=== PATIENT | female | born 1960 | race African-American/Black ===

== ENCOUNTER 2016-03-27 16:44 | Emergency (ER) | payer OTHER ==
[~2016-03-27] VITALS: Ht 154.9 cm; Wt 86.2 kg
[~2016-03-27 16:44] MED LIST: ALDACTONE25 MG PO; ALLOPURINOL 10100 M1 PO; ALLOPURINOL 10100 M2 PO; AMLODIPINE BESY10 MG PO; ASPIRIN EC81 M1 PO; ASPIRIN81 M2 PO; ATENOLOL 50 MG50 M1 PO; ATENOLOL 50MG T50 M1 PO; AUGMENTIN 500-1 EACH PO; AUGMENTIN 875875 MG PO; Augmentin PO; BACTRIM DS TAB1 EACH PO; BENICAR40 MG PO; BENTYL20 MG PO; BUDESONIDE INH; CARVEDILOL12.5 MG PO; CIPROFLOXACIN500 M3 PO; COLACE 100 MG100 MG PO; COLACE100 MG PO; COLCHICINE 0.60.6 M1 PO; COZAAR 50 MG TA50 MG PO; CRESTOR10 MG PO; DAZIDOX10 MG PO; DEEP SEA NASAL44 M1 NS; DUONEB 2.5-0.5 M3 ML INH; ENDOCET 10-3251 EACH PO; ENDOCET 7.5-321 EACH PO; FERREX 150150 MG PO; FLEXERIL PO; FUROSEMIDE 40 M40 M1 PO; GLIPIZIDE XL2.5 MG PO; GLUCOPHAGE500 MG PO; GLUMETZA500 PO; GLYBURIDE 5 MG T5 M1 PO; GLYCOLAX POWDER17 G1 PO; HYDROXYCHLOROQ200 M1 PO; IMDUR 30 MG TAB30 M1 PO; K-DUR 20 MEQ T20 MEQ PO; K-DUR10 MEQ PO; LANSOPRAZOLE30 MG PO; LASIX 40 MG TAB40 M1 PO; LASIX 40 MG TAB40 MG PO; LEVAQUIN 500 M500 M1 PO; LO-DOSE ASPIRIN81 M1 PO; MAG-OX 400 TAB400 M1 PO; MAGNESIUM400 MG PO; MELOXICAM7.5 MG PO; METOCLOPRAMIDE10 MG PO; MIRALAX17 GM PO; MOBIC7.5 MG PO; MUCINEX600 MG PO; NEXIUM40 MG PO; NICOTINE TRANSD14 M1 TRANSDERM; NORCO 5-325 TA1 EACH PO; NORVASC10 MG PO; NOVOLOG100 UNIT/1 SQ; PACERONE 200 M200 M1 PO; PERCOCET 10-321 EACH PO; PHENERGAN-CODE120 ML PO; POTASSIUM20 PO; PRADAXA150 MG PO; PREDNISONE 10 M10 MG PO; PREDNISONE 20 M20 M1 PO; PREDNISONE 20 M20 MG PO; PREDNISONE 5 MG5 M1 PO; RANITIDINE 150150 M1 PO; REGLAN 10 MG TA10 MG PO; SENNA PO; SIMVASTATIN20 MG PO; SPIRONOLACTONE25 M3 PO; THERA-M CAPLET1 EAC1 PO; THEREMS M; TRAMADOL 50 MG50 MG PO; ULORIC40 MG PO; ULORIC80 MG PO; VITAMIN D 5050000 I1 PO; VITAMIN D250000 UNIT PO; VITAMIN D32000 UNI1 PO; VOLTAREN100 GM; ZANTAC 150MG T150 M1 PO; ZOCOR 20 MG TAB20 M1 PO; ZOFRAN ODT4 MG PO; ZPAK PO
[2016-03-27 17:50] LABS: MCH 28.3 pg (26.0-34.0); MCHC 32.4 % (28.0-37.0); MCV 87.2 fL (80.0-100.0); PLATELET COUNT 250 thou/uL (150-400); RDW 14.4 % (10.5-14.5); WBC 12.2 thou/uL (4.0-11.0)
[2016-03-27 17:54] LABS: MANUAL DIFF YES
[2016-03-27 17:57] LABS: URINE BILIRUBIN NEGATIVE (Negative); URINE BLOOD NEGATIVE (Negative); URINE COLOR YELLOW; URINE GLUCOSE-RANDOM* NEGATIVE (Negative); URINE KETONES NEGATIVE (Negative); URINE NITRITE NEGATIVE (Negative); URINE PROTEIN (DIPSTICK) NEGATIVE (Negative); URINE UROBILINOGEN 0.2 E.U./dl (0.2-1.0)
[2016-03-27 18:09] LABS: CALCIUM 8.5 mg/dL (8.5-10.1); CREATININE 1.9 mg/dL (0.6-1.3)
[2016-03-27 18:13] LABS: ALBUMIN 3.4 g/dL (3.4-5.0); TOTAL BILIRUBIN 0.3 mg/dL (<0.1-1.0); TOTAL PROTEIN 7.5 g/dL (6.4-8.2)
[2016-03-27 18:20] LABS: ABSOLUTE NEUTROPHILS 9.3 thou/uL (1.4-8.2); TOTAL CELL COUNT 100
[2016-03-27 18:21] LABS: HYPOCHROMASIA 1+
[2016-03-27] MEDS ORDERED: PHENERGAN 25 MG25 M1 PO (19:11)
== END 2016-03-27 19:31 | disposition home or self-care (01) ==
LOC: ER 16:44
PROVIDERS: Physician Assistant
DX: N17.9 Acute kidney failure, unspecified (principal); D21.9 Benign neoplasm of connective and other soft tissue, unspecified; E86.0 Dehydration; I11.0 Hypertensive heart disease with heart failure; I50.9 Heart failure, unspecified; K21.9 Gastro-esophageal reflux disease without esophagitis; E11.9 Type 2 diabetes mellitus without complications; F17.210 Nicotine dependence, cigarettes, uncomplicated; Z90.49 Acquired absence of other specified parts of digestive tract; Z98.890 Other specified postprocedural states; Z88.8 Allergy status to other drugs, medicaments and biological substances

== ENCOUNTER → 2017-03-26 | Outpatient (CLI) | payer OTHER ==
[~2017-03-26] MED LIST changes: +ACETAMINOPHEN325 M1 PO; +AMOXICILLIN 50500 MG PO; +ENOXAPARIN40 MG/0.1 SUBQ; +LIDOCAINE VISC100 ML PO; +MAGIC MOUTHWASH SWISH&SPIT; +NICOTINE1 EAC2 TRANSDERM; +NOVOLOG100 UNIT/1 SUBQ; +PHENERGAN 25 MG25 M1 PO; +PROBIOTIC1 EAC1 PO
== END ==
LOC: RAD 01-28 11:31
DX: J41.1 Mucopurulent chronic bronchitis (principal); J98.11 Atelectasis; R91.8 Other nonspecific abnormal finding of lung field; M25.532 Pain in left wrist

== ENCOUNTER → 2017-04-27 | Outpatient (CLI) | payer OTHER | LOC: CAT 03-31 11:40 | DX: J41.1 Mucopurulent chronic bronchitis (principal); R91.8 Other nonspecific abnormal finding of lung field ==

== ENCOUNTER 2017-05-16 10:01 | Inpatient (IN) | payer OTHER ==
[~2017-05-16] VITALS: Ht 167.6 cm; Wt 108.0 kg
--- NOTE | ~2017-05-16 | HC ---
[facility] [place] [address] CONSULTATION Name: HUMBERTO SMITH Room #: 207-P ADM IN M.R.#: [id number] Admission: 05/16/17 Attend Phys: Farzana Paez Discharge: Date of : 60 Report #: [id number] THIS REPORT FOR: //name// CC: Michel Paez DATE OF SERVICE: 05/16/2017 INFECTIOUS DISEASE CONSULTATION ATTENDING PHYSICIAN: Farzana Paez M.D. REASON FOR EVALUATION: Consolidating pneumonitis involving the left lung, complicated by pleuritis. HISTORY OF PRESENT ILLNESS: Chart reviewed, the patient examined. This is a 57-year-old woman with known history of lung disease. She does have a long-standing history of smoking cigarettes. Does have diabetes mellitus type 2 and history of pacemaker defibrillator, who became fairly abruptly ill within the last 48-72 hours. She noted severe pain, especially with coughing and deep breathing and was in some degree of hemoptysis as well. Febrile to 102.3 in the Emergency Room. Evaluation was notable for positive imaging with consolidative process involving the left lung via the CT. Influenza antigen was negative. Lactic acid 1.4. ABGs: A pH of 7.342, pCO2 of 36.4 and pO2 of 39.2 and that was on 6 liters. She had some emesis and upper abdominal related pain. CT abdomen and pelvis showed the dense consolidation of the left lower lobe, although no acute process in the abdominal or pelvic cavities. Empirically treated with Tamiflu, levofloxacin and ceftriaxone. She is not encephalopathic. ALLERGIES: ENALAPRIL. CURRENT MEDICATIONS: Include furosemide, amlodipine, atenolol, enoxaparin, levofloxacin, methylprednisolone, aspirin, p.r.n. analgesics, antiemetics and Tamiflu. PAST MEDICAL HISTORY: Diabetes mellitus type 2, history of gout, history of hypertension, pacemaker defibrillator placement post cholecystectomy and tubal ligation. SOCIAL HISTORY: She does smoke cigarettes, although has not smoked in 2 weeks. Occasional ethanol. No illicit drug use. FAMILY HISTORY: Noncontributory. REVIEW OF SYSTEMS: As above. Denies any diarrhea. Has had some nausea with emesis. [facility] [address] [place] [address] CONSULTATION Name: HUMBERTO SMITH Room #: 207-P [facility] IN M.R.#: [id number] Admission: 05/16/17 Attend Phys: Farzana Paez Discharge: Date of : 60 Report #: [id number] PHYSICAL EXAMINATION: GENERAL: She is in cozxczwb-[id number] distress secondary to the pain, appears somewhat acutely chronically ill. VITAL SIGNS: T-max of 102.3, more recently 99.3; pulse 111; respirations 22 and blood pressure 146/67. SKIN: Warm, dry. HEENT: Unremarkable. NECK: Supple. LUNGS: Scattered coarse breath sounds. I appreciate initially a rub on the left posterolateral basilar aspect. HEART: Tachycardic, regular. ABDOMEN: Soft, nontender and nondistended. There are no peritoneal signs. GENITOURINARY: Deferred. RECTAL: Deferred. LABORATORY DATA: Chest x-rays showed cardiomegaly, left basilar and right patchy lower lobe. CT confirmed dense consolidation of the left base. CBC: White count of 22.8, H and H 10.3 and 32.6 and platelets of 248,000. Urinalysis unremarkable. Lactic acid 1.4. ASSESSMENT AND PLAN: Severe pneumonitis and certainly may be developing some sort of complicated issue such as an empyema. We would be worried about gram-positive etiology in the setting of group A Strep pneumococcus or Staph aureus. We will dose with vancomycin as well. Given the severity, this is certainly consistent with pleuritic-type chest pain. At this point, she is quite tenuous given the hypoxemia. She does have recently controlled blood sugars. Liver functions were otherwise unremarkable. We will go ahead and check lipase and amylase. However, it certainly raises a possibility of an issue there. We will see how she does clinically and await culture results. Discussed with Dr. Bee. <ELECTRONICALLY SIGNED> By: Baljeet Kee MD 05/17/17 0758 1721 2236 Baljeet Kee MD /nt
--- NOTE | ~2017-05-16 | HC ---
[facility] [place] [address] CONSULTATION Name: HUMBERTO SMITH Room #: 207-P [facility] IN M.R.#: [id number] Admission: 05/16/17 Attend Phys: Farzana Paez Discharge: 05/21/17 Date of : 60 Report #: [id number] THIS REPORT FOR: //name// CC: Michel Paez MD DATE OF SERVICE: 05/16/2017 REFERRING PROVIDER: Farzana Paez M.D. REASON FOR CONSULTATION: Pneumonia. CHIEF COMPLAINT: Shortness of breath. HISTORY OF PRESENT ILLNESS: Our group was asked to see the patient in consultation while hospitalized at [facility], well known to me from office visits and prior hospital stays, a very pleasant 57-year-old woman who presented with increasing shortness of breath, cough and sputum production, unable to clear secretions well over about the last 3 days and ongoing fever and myalgias, some nausea and vomiting. The patient is typically on low flow oxygen 2-3 liters nasal cannula. The patient also is on chronic steroids for underlying history of bronchiolitis obliterans organizing pneumonia in the distant past. Also, the pulmonary history significant of pulmonary embolism. She just 1 month ago was complaining of similar symptoms, found to have a lesion anteriorly on her chest x-ray, was placed on antibiotics and followup imaging including a CT scan of the chest just done 2 weeks ago showed minimal ground glass changes, otherwise clear. However, today on radiographic imaging in the Emergency Department, a large left lower lobe pneumonia was noted. No recent travel, no ill contacts. ALLERGIES: INCLUDE WILLIAM INHIBITORS. PAST MEDICAL HISTORY: 1. Bronchiolitis obliterans organizing pneumonia. 2. Chronic obstructive pulmonary disease. 3. Chronic hypoxemic respiratory failure. 4. Gout. 5. Hyperlipidemia. 6. Hypertension. 7. Nonischemic cardiomyopathy. 8. Implanted defibrillator cardioverter pacer. 9. Obesity. 10. Obstructive sleep apnea. 11. History of ventricular tachycardia. [facility] [address] [place] [address] CONSULTATION Name: HUMBERTO SMITH Room #: 207-P [facility] IN M.R.#: [id number] Admission: 05/16/17 Attend Phys: Farzana Paez Discharge: 05/21/17 Date of : 60 Report #: [id number] PAST SURGICAL HISTORY: Includes appendectomy, cholecystectomy, foot surgery and tubal ligation. SOCIAL HISTORY: The patient is an active smoker, smoking up until the time of admission. No significant alcohol consumption. FAMILY HISTORY: Negative for any significant pulmonary disease. OUTPATIENT MEDICATIONS: Include albuterol p.r.n., amlodipine 10 mg daily, aspirin 81 mg daily, atenolol 50 mg daily, Colace, Uloric 80 mg daily, fish oil, Lasix 40 mg twice daily, DuoNebs, potassium chloride, prednisone 5 mg daily, ranitidine, rosuvastatin and Breo 125 inhaler. PHYSICAL EXAMINATION: VITAL SIGNS: Temperature max 39.1, pulse 115 and regular, respiratory rate 20, blood pressure 146/67. GENERAL: This is an obese, middle-aged woman, does not appear in any distress, although obviously ill appearing. ENT: Clear oropharynx. No thrush. NECK: Supple without adenopathy. LUNGS: Markedly diminished left base with bronchial breath sounds and coarse expiratory rhonchi. CARDIOVASCULAR: Heart was tachycardic, but regular. No murmurs noted. ABDOMEN: Obese, soft, nontender, no masses. EXTREMITIES: Without edema. They are warm with 2+ pulses. INTEGUMENT: No rash. LABORATORY DATA: White blood cell count was 23,000, hemoglobin 10, hematocrit 33, platelet count 248. Sodium 141, potassium 3.3, chloride 105, bicarbonate 21, BUN 46, creatinine 2.3, glucose 124. ProBNP was 3934. Arterial blood gas done on 6 liters suggests a venous blood gas with a pH of 7.34, pCO2 of 36, pO2 of 39, bicarbonate 19. Urinalysis was clear. Rapid flu screen was negative. IMPRESSION: 1. Left lower lobe pneumonia. 2. Possible influenza. 3. Chronic steroid use. 4. Chronic obstructive pulmonary disease with acute exacerbation. 5. Acute on chronic hypoxemic respiratory failure due to the above. 6. History of bronchiolitis obliterans organizing pneumonia. 7. History of nonischemic cardiomyopathy. 8. Diabetes mellitus type 2. SUGGESTIONS: 1. Systemic steroids with taper. 2. Ask Infectious Disease Service to assist with antimicrobial management. The [address] [address] CONSULTATION Name: HUMBERTO SMITH Room #: 207-P [facility] IN M.R.#: [id number] Admission: 05/16/17 Attend Phys: Farzana Paez Discharge: 05/21/17 Date of : 60 Report #: [id number] patient has already received Rocephin and levofloxacin. 3. Continue systemic steroids with taper. 4. Bronchodilators. We will add EzPAP. 5. Add Tamiflu. 6. Nasal swab for respiratory viral panel. 7. Continuous oximetry. 8. Additional recommendations will follow. Thank you for requesting our suggestions. <ELECTRONICALLY SIGNED> By: Julius Victoria MD 05/21/17 1452 1447 1511 Julius Victoria MD /nt
--- NOTE | ~2017-05-16 | EKG ---
[place] [address] [facility] [place] [address] ELECTROCARDIOGRAM REPORT Name: HUMBERTO SMITH Room #: 207-P ADM IN M.R.#: [id number] Admission: 05/16/17 Attend Phys: Farzana Paez Discharge: Date of : 60 Report #: [id number] THIS REPORT FOR: //name// [facility] ED Test Date: 2017-05-16 Test Time: 10:30:28 Pat Name: HUMBERTO SMITH Department: Room: 207 Gender: F Silk Screener: Nelson OLIVERA : 1960 Requested By: Tito Osborne Order Number: [id number] MD: Roshan Chicas Measurements Intervals [place] Rate: 116 P: 60 WI: 128 QRS: 3 QRSD: 78 T: 67 QT: 330 QTc: 459 Interpretive Statements Sinus tachycardia Left atrial abnormality Compared to ECG 01/10/2014 12:13:34 Heart rate has increased Electronically Signed On 05-17-2017 7:41:47 MANAGER DOCUMENT by Roshan Chicas [email or web address] <ELECTRONICALLY SIGNED> By: Roshan Chicas MD, [facility] 05/17/17 0741 1030 1030 Roshan Chicas MD, [facility] /EPI
[~2017-05-16 10:01] MED LIST changes: -ACETAMINOPHEN325 M1 PO; -ENOXAPARIN40 MG/0.1 SUBQ; -LIDOCAINE VISC100 ML PO; -MAGIC MOUTHWASH SWISH&SPIT; -NICOTINE1 EAC2 TRANSDERM; -NOVOLOG100 UNIT/1 SUBQ; -PROBIOTIC1 EAC1 PO
[2017-05-16 10:02] VITALS: BP 142/71
[2017-05-16] MEDS ORDERED: POTASSIUM20 PO (10:17)
[2017-05-16 10:59] LABS: HEMATOCRIT 32.6 % (37.0-47.0); HEMOGLOBIN 10.3 gm/dL (12.0-15.0); MCH 27.8 pg (26.0-34.0); MCHC 31.7 g/dL (28.0-37.0); MCV 87.8 fL (80.0-100.0); PLATELET COUNT 248 thou/uL (150-400); RBC 3.72 mil/uL (4.20-5.00); RDW 14.4 % (10.5-14.5); WBC 22.8 thou/uL (4.0-11.0)
[2017-05-16 11:04] LABS: ANION GAP 15 mmol/L (7-16); BUN 46 mg/dL (7-18); CALCIUM 8.1 mg/dL (8.5-10.1); CHLORIDE 105 mmol/L (98-107); CO2 21 mmol/L (21-32); CREATININE 2.3 mg/dL (0.6-1.0); GLUCOSE 124 mg/dL (74-106); POTASSIUM 3.3 mmol/L (3.5-5.1); SODIUM 141 mmol/L (136-145)
[2017-05-16 11:08] LABS: INR 1.1; PROTIME 11.2 Seconds (9.3-11.4)
[2017-05-16 11:15] LABS: SGOT 19 U/L (15-37); SGPT 16 U/L (30-65); TOTAL BILIRUBIN 0.4 mg/dL (<0.1-1.0); TOTAL PROTEIN 6.9 g/dL (6.4-8.2); TROPONIN-I < 0.04 ng/mL (<0.06)
[2017-05-16 11:20] LABS: URINE BILIRUBIN NEGATIVE (Negative); URINE BLOOD NEGATIVE (Negative); URINE CLARITY CLEAR; URINE COLOR YELLOW; URINE GLUCOSE-RANDOM* NEGATIVE (Negative); URINE KETONES NEGATIVE (Negative); URINE LEUKOCYTES NEGATIVE (Negative); URINE NITRITE NEGATIVE (Negative); URINE PROTEIN (DIPSTICK) NEGATIVE (Negative); URINE UROBILINOGEN 0.2 E.U./dl (0.2-1.0)
[2017-05-16 11:31] LABS: ABSOLUTE NEUTROPHILS 19.8 thou/uL (1.4-8.2); ANISOCYTOSIS 1+
[2017-05-16 11:32] LABS: POLYCHROMASIA OCCASIONAL
[2017-05-16 11:37] LABS: BE(vivo) -5.8 mmol/L (-2 to +3); HCO3 19.3 mmol/L (22.0-26.0); PCO2 36.4 mmHg (35.0-45.0); pH 7.342 (7.360-7.450); sO2 71.3 % (92.0-98.0)
[2017-05-16 11:38] LABS: PO2 39.2 mmHg (80.0-100.0)
[2017-05-16 12:59] VITALS: BP 146/67
[2017-05-16 17:58] LABS: AMYLASE 89 U/L (25-115); LIPASE 115 U/L (73-393)
[2017-05-16 19:52] VITALS: BP 134/75
[2017-05-16 23:31] VITALS: BP 117/65
[2017-05-17 03:37] VITALS: BP 123/67
[2017-05-17 08:00] LABS: BE(vivo) -5.6 mmol/L (-2 to +3); HCO3 19.8 mmol/L (22.0-26.0); PCO2 38.4 mmHg (35.0-45.0); PO2 63.2 mmHg (80.0-100.0); pH 7.331 (7.360-7.450); sO2 90.9 % (92.0-98.0)
[2017-05-17 11:31] VITALS: BP 110/70
[2017-05-17 18:09] VITALS: BP 122/45
[2017-05-17 19:42] VITALS: BP 121/88
[2017-05-18 04:05] VITALS: BP 104/54
[2017-05-18 04:51] LABS: ALBUMIN 2.4 g/dL (3.4-5.0); CALCIUM 6.7 mg/dL (8.5-10.1); CREATININE 2.3 mg/dL (0.6-1.0); HEMOGLOBIN 8.5 gm/dL (12.0-15.0); MCHC 31.4 g/dL (28.0-37.0); MCV 89.3 fL (80.0-100.0); POTASSIUM 4.5 mmol/L (3.5-5.1); RBC 3.02 mil/uL (4.20-5.00); RDW 14.7 % (10.5-14.5); WBC 29.8 thou/uL (4.0-11.0)
[2017-05-18 09:04] VITALS: BP 108/66
[2017-05-18 12:41] VITALS: BP 122/71
[2017-05-18 16:08] VITALS: BP 106/69
[2017-05-18 19:43] VITALS: BP 115/58
[2017-05-19 03:24] VITALS: BP 104/67
[2017-05-19 04:25] LABS: HEMATOCRIT 27.3 % (37.0-47.0); HEMOGLOBIN 8.6 gm/dL (12.0-15.0); MCH 28.3 pg (26.0-34.0); MCHC 31.7 g/dL (28.0-37.0); MCV 89.3 fL (80.0-100.0); PLATELET COUNT 246 thou/uL (150-400); RBC 3.05 mil/uL (4.20-5.00); RDW 14.5 % (10.5-14.5); WBC 23.9 thou/uL (4.0-11.0)
[2017-05-19 04:39] LABS: ALBUMIN 2.7 g/dL (3.4-5.0); CREATININE 2.5 mg/dL (0.6-1.0); PHOSPHORUS 4.3 mg/dL (2.5-4.9)
[2017-05-19 07:33] LABS: ABSOLUTE NEUTROPHILS 22.7 thou/uL (1.4-8.2); ANISOCYTOSIS 1+; POLYCHROMASIA OCCASIONAL
[2017-05-19 08:25] VITALS: BP 125/72
[2017-05-19 11:50] VITALS: BP 113/61
[2017-05-19 15:38] VITALS: BP 135/80
[2017-05-19 20:00] VITALS: BP 123/69
[2017-05-20 00:06] LABS: ADENOVIRUS Negative (Negative); INFLUENZA A Negative (Negative); INFLUENZA B Negative (Negative); METAPNEUMOVIRUS Negative (Negative); PARAINFLUENZA 1 Negative (Negative); PARAINFLUENZA 2 Negative (Negative); PARAINFLUENZA 3 Negative (Negative); RHINOVIRUS Negative (Negative); RSV A Negative (Negative); RSV B Negative (Negative)
[2017-05-20 03:18] LABS: HEMATOCRIT 26.5 % (37.0-47.0); HEMOGLOBIN 8.5 gm/dL (12.0-15.0); MCH 28.2 pg (26.0-34.0); MCHC 31.8 g/dL (28.0-37.0); MCV 88.6 fL (80.0-100.0); RDW 14.5 % (10.5-14.5); WBC 20.7 thou/uL (4.0-11.0)
[2017-05-20 03:29] LABS: ALBUMIN 2.6 g/dL (3.4-5.0); CALCIUM 6.9 mg/dL (8.5-10.1); CREATININE 2.4 mg/dL (0.6-1.0); PHOSPHORUS 4.3 mg/dL (2.5-4.9)
[2017-05-20 04:00] VITALS: BP 119/78
[2017-05-20 14:59] VITALS: BP 146/86
[2017-05-20 17:14] VITALS: BP 134/78
[2017-05-20 19:44] VITALS: BP 127/64
[2017-05-21 04:49] VITALS: BP 117/62
[2017-05-21 07:19] VITALS: BP 142/84
[2017-05-21] MEDS ORDERED: LEVAQUIN 500 M500 M1 PO (08:46)
[2017-05-21] MEDS ORDERED: PREDNISONE 10 M10 MG PO (08:48)
[2017-05-21 08:59] LABS: HEMATOCRIT 29.8 % (37.0-47.0); HEMOGLOBIN 9.4 gm/dL (12.0-15.0); MCH 28.1 pg (26.0-34.0); MCHC 31.4 g/dL (28.0-37.0); MCV 89.5 fL (80.0-100.0); RBC 3.33 mil/uL (4.20-5.00); RDW 14.7 % (10.5-14.5); WBC 23.6 thou/uL (4.0-11.0)
[2017-05-21 10:00] VITALS: BP 146/86
[2017-05-21 11:55] VITALS: BP 146/86
== END 2017-05-21 12:13 | disposition home or self-care (01) | DRG 871 ==
LOC: ER 10:01 → 2N 11:45 → EROBS 11:45 → 2N 12:40
PROVIDERS: Hospitalist; Internal Medicine Pulmonary Disease; Physician Assistant; Specialist
DX: A41.9 Sepsis, unspecified organism (principal); J96.21 Acute and chronic respiratory failure with hypoxia; J18.1 Lobar pneumonia, unspecified organism; J44.1 Chronic obstructive pulmonary disease with (acute) exacerbation; I13.0 Hypertensive heart and chronic kidney disease with heart failure and stage 1 through stage 4 chronic kidney disease, or unspecified chronic kidney disease; I42.8 Other cardiomyopathies; E78.00 Pure hypercholesterolemia, unspecified; M10.9 Gout, unspecified; K21.9 Gastro-esophageal reflux disease without esophagitis; E66.9 Obesity, unspecified; E78.5 Hyperlipidemia, unspecified; I50.9 Heart failure, unspecified; I48.91 Unspecified atrial fibrillation; G89.29 Other chronic pain; M54.9 Dorsalgia, unspecified; F17.210 Nicotine dependence, cigarettes, uncomplicated; N18.9 Chronic kidney disease, unspecified; R65.20 Severe sepsis without septic shock; G47.33 Obstructive sleep apnea (adult) (pediatric); E11.22 Type 2 diabetes mellitus with diabetic chronic kidney disease; Z90.49 Acquired absence of other specified parts of digestive tract; Z95.810 Presence of automatic (implantable) cardiac defibrillator; Z68.38 Body mass index [BMI] 38.0-38.9, adult; Z79.82 Long term (current) use of aspirin; Z79.899 Other long term (current) drug therapy; Z88.8 Allergy status to other drugs, medicaments and biological substances
CPT/HCPCS: 10081

== ENCOUNTER 2017-05-27 17:12 | Emergency (ER) | payer OTHER ==
[~2017-05-27] VITALS: Ht 167.6 cm; Wt 108.9 kg
--- NOTE | ~2017-05-27 | EKG ---
[place] [address] [facility] [place] [address] ELECTROCARDIOGRAM REPORT Name: HUMBERTO SMITH Room #: DEP [facility]#: [id number] Admission: 05/27/17 Attend Phys: Discharge: 05/27/17 Date of : 60 Report #: [id number] THIS REPORT FOR: //name// [facility] ED Test Date: 2017-05-27 Test Time: 18:43:18 Pat Name: HUMBERTO SMITH Department: Room: Gender: F Mechanical Technologist: BUDDY : 1960 Requested By: Felicia Luque Order Number: [id number] MD: Roshan Chicas Measurements Intervals [place] Rate: 79 P: 80 ID: 132 QRS: 1 QRSD: 89 T: 43 QT: 425 QTc: 488 Interpretive Statements Sinus rhythm Probable left atrial enlargement RSR' in V1 or V2, probably normal variant Nonspecific ST segment abnormality Borderline prolonged QT interval Compared to ECG 05/16/2017 10:30:28 No significant change was found Electronically Signed On 05-28-2017 8:01:53 PICKLE CUTTER by Roshan Chicas [email or web address] <ELECTRONICALLY SIGNED> By: Roshan Chicas MD, [facility] 05/28/17 0801 1843 1843 Roshan Chicas MD, [facility] /EPI
[2017-05-27 20:17] LABS: HEMATOCRIT 31.1 % (37.0-47.0); MCH 28.5 pg (26.0-34.0); MCHC 32.2 g/dL (28.0-37.0); MCV 88.4 fL (80.0-100.0); PLATELET COUNT 296 thou/uL (150-400); RBC 3.51 mil/uL (4.20-5.00); WBC 22.4 thou/uL (4.0-11.0)
[2017-05-27 20:21] LABS: ANION GAP 12 mmol/L (7-16); BUN 59 mg/dL (7-18); CALCIUM 8.4 mg/dL (8.5-10.1); CHLORIDE 102 mmol/L (98-107); CO2 24 mmol/L (21-32); CREATININE 2.4 mg/dL (0.6-1.0); GLUCOSE 112 mg/dL (74-106); POTASSIUM 4.5 mmol/L (3.5-5.1); SODIUM 138 mmol/L (136-145)
[2017-05-27 20:29] LABS: ALBUMIN 3.2 g/dL (3.4-5.0); SGOT 16 U/L (15-37); SGPT 21 U/L (30-65); TOTAL BILIRUBIN 0.3 mg/dL (<0.1-1.0); TOTAL PROTEIN 6.9 g/dL (6.4-8.2); TROPONIN-I < 0.04 ng/mL (<0.06)
[2017-05-27 20:44] LABS: ABSOLUTE NEUTROPHILS 17.9 thou/uL (1.4-8.2); MYELOCYTES 2 %
[2017-05-27 20:45] LABS: MACROCYTES 1+; POLYCHROMASIA SLIGHT; SCHISTOCYTES OCCASIONAL
[2017-05-27 21:01] LABS: URINE BILIRUBIN NEGATIVE (Negative); URINE BLOOD NEGATIVE (Negative); URINE CLARITY CLEAR; URINE COLOR YELLOW; URINE GLUCOSE-RANDOM* NEGATIVE (Negative); URINE KETONES NEGATIVE (Negative); URINE LEUKOCYTES NEGATIVE (Negative); URINE NITRITE NEGATIVE (Negative); URINE PROTEIN (DIPSTICK) NEGATIVE (Negative); URINE UROBILINOGEN 0.2 E.U./dl (0.2-1.0)
[2017-05-27] MEDS ORDERED: MAGIC MOUTHWASH SWISH&SPIT (21:23)
[2017-05-27] MEDS ORDERED: PROBIOTIC1 EAC1 PO (21:23)
[2017-05-27 21:29] VITALS: BP 119/70
== END 2017-05-27 21:47 | disposition home or self-care (01) ==
LOC: ER 17:12
PROVIDERS: Nurse Practitioner Family
DX: K12.30 Oral mucositis (ulcerative), unspecified (principal); B37.81 Candidal esophagitis; B37.0 Candidal stomatitis; D72.829 Elevated white blood cell count, unspecified; E11.9 Type 2 diabetes mellitus without complications; M10.9 Gout, unspecified; K21.9 Gastro-esophageal reflux disease without esophagitis; E78.5 Hyperlipidemia, unspecified; I11.0 Hypertensive heart disease with heart failure; I50.9 Heart failure, unspecified; F17.210 Nicotine dependence, cigarettes, uncomplicated; Z88.8 Allergy status to other drugs, medicaments and biological substances

== ENCOUNTER → 2017-05-28 | Outpatient (CLI) | payer OTHER ==
[~2017-05-28] MED LIST changes: +MAGIC MOUTHWASH SWISH&SPIT; +PROBIOTIC1 EAC1 PO
== END ==
LOC: ULTRA 14:37
DX: J44.9 Chronic obstructive pulmonary disease, unspecified (principal); M79.89 Other specified soft tissue disorders

== ENCOUNTER 2018-01-16 10:12 | Inpatient (IN) | payer OTHER ==
[~2018-01-16] VITALS: Ht 162.6 cm; Wt 108.0 kg
--- NOTE | ~2018-01-16 | O ---
[facility] [place] [address] [place] [address] OPERATIVE REPORT Name: HUMBERTO SMITH Room #: 417-I ADM IN M.R.#: [id number] Admission: 01/16/18 Attend Phys: Austin Jeronimo MD Discharge: Date of : 60 Report #: [id number] THIS REPORT FOR: //name// CC: Austin Morales DATE OF SERVICE: 01/18/2018 PREOPERATIVE DIAGNOSIS: Left tibia fracture. POSTOPERATIVE DIAGNOSIS: Left tibia fracture. PROCEDURE: Left tibia open reduction internal fixation. SURGEON: Kenny Banuelos M.D. MATERIAL STOCKKEEPER YARD: Cely Conway. ANESTHESIA: General. ESTIMATED BLOOD LOSS: Minimal. DRAINS: None. TOURNIQUET TIME: 60 minutes. DESCRIPTION OF PROCEDURE: The patient brought to the operating room where she was placed under general anesthesia. Once under adequate general anesthesia, her left lower extremity was prepped and draped in sterile manner. The extremity was elevated, exsanguinated, tourniquet placed to 350 mmHg. A medial incision over the medial malleolus was then made approximately 5 cm in length. This was dissected down through soft tissue to the medial malleolus, which was then subsequently identified both manually and fluoroscopically into which a Synthes distal medial tibial locking plate was placed. This was then slid subperiosteally along the tibia. Subsequent fixation distally was achieved with multiple cortical as well as locking screws to the distal tibia. Approximately, 4 cortical screws were placed in the plate. Excellent fixation and satisfactory alignment were achieved in this manner. There had been a separate incision proximally over the proximal plate for the placement of the 4 cortical screws. The wound was irrigated copiously and closed with 2-0 Vicryl in subcutaneous tissues and yas for the skin. Wounds were dressed with Xeroform, 4 x 4s, and a sterile soft compressive dressing was placed. Tourniquet was let down at approximately 1 hour. A short leg splint was placed. Toes were pink and warm with good capillary refill. Tourniquet was let down at 1 hour. There were no [facility] [address] [place] [address] OPERATIVE REPORT Name: SARAHHUMBERTO TURK EVELIA Room #: 417-I [facility] IN [facility]#: [id number] Admission: 01/16/18 Attend Phys: Austin Jeronimo MD Discharge: Date of : 60 Report #: [id number] complications from the procedure. The patient tolerated the procedure well and went to the recovery room without incident. <ELECTRONICALLY SIGNED> By: Kenny Banuelos MD 01/19/18 1505 1544 1623 Kenny Banuelos MD /nt
--- NOTE | ~2018-01-16 | HC ---
[facility] [place] [address] CONSULTATION Name: HUMBERTO SMITH Room #: 417-I [facility] IN M.R.#: [id number] Admission: 01/16/18 Attend Phys: Austin Jeronimo MD Discharge: 01/29/18 Date of : 60 Report #: [id number] THIS REPORT FOR: //name// CC: Austin Morales DATE OF SERVICE: 01/19/2018 HISTORY OF PRESENT ILLNESS: This is a 57-year-old female who fell off a front door step, had the onset of left leg pain. She was admitted to [facility] and noted to have a nondisplaced distal tib-fib fracture. She underwent open reduction and internal fixation on 01/18/[address] Banuelos. She will be limited to nonweightbearing for at least 4 weeks. We are seeing her in rehabilitation medicine consultation. PAST MEDICAL HISTORY: Diabetes mellitus, hypertension, gout, pacemaker defibrillator insertion in 2006, GERD, obesity, hyperlipidemia, multi-joint osteoarthritis, atrial fibrillation, chronic back pain, and tobacco abuse. PAST SURGICAL HISTORY: Cholecystectomy age 50. HABITS: Tobacco usage. Current every day smoker, half a pack a day for 31 years. Alcohol use only on special occasions. ALLERGIES: WILLIAM INHIBITORS AND ENALAPRIL. SOCIAL HISTORY: Lives alone in an apartment. Did not utilize gait aids premorbidly unless she had a flareup of her arthritic complaints. She does have a cane or a walker available. No steps. REVIEW OF SYSTEMS: She notes intermittent complaints of upper extremity arthritic pain. Denies any chest pain, shortness of breath, abdominal discomfort. PHYSICAL EXAMINATION: GENERAL: She is a pleasant, overweight 57-year-old -[place] female in no obvious distress. VITAL SIGNS: Last recorded temperature 98, pulse 82, respirations 16, blood pressure 131/57. She is alert, pleasant, oriented. HEENT: Appeared to be benign. NEUROLOGIC: Cranial nerves are grossly intact. Facies are symmetric. EXTREMITIES: Functional range of motion of the upper extremity strength is grade 4+/5. DTRs are trace to 1. No focal synovitis is noted. Lower extremities, functional range of motion of the right lower extremity without obvious focal weakness. DTRs are trace. Left lower extremity reveals a short leg cast in place. She is able to wiggle her toes. There is no swelling. [address] [address] CONSULTATION Name: HUMBERTO SMITH Room #: 417-I [facility] IN [facility].#: [id number] Admission: 01/16/18 Attend Phys: Austin Jeronimo MD Discharge: 01/29/18 Date of : 60 Report #: [id number] Proximal strength is probably grade 4. She is mod assist with supine to sit and sit to stand with a front-wheeled walker. ASSESSMENT: A 57-year-old -[place] female with the following problems: 1. Nondisplaced distal tib-fib fracture, status post open reduction and internal fixation of the left tibia 01/18/2018. Nonweightbearing for at least 4 weeks. 2. Exogenous obesity. 3. Multi joint degenerative arthritis. 4. History of gout. 5. Prior cardiac pacemaker/defibrillator. 6. Congestive heart failure. 7. Atrial fibrillation. 8. Tobacco abuse. 9. Chronic back pain. PLAN: Options were discussed with the patient. She has a family member who apparently works over at [facility] and is desiring to consider [facility] as a possibility. She indicates that she has doubt, should be able to return back to the home setting unless she is fully weightbearing. I think it is reasonable for the bottle caser to work with her on rehab therapy options as noted above. We will ask occupational therapy to reassess her. Now that she is postoperative as well. <ELECTRONICALLY SIGNED> By: Michel Smith MD 02/01/18 1121 1430 2352 Michel Smith MD /nt
[2018-01-16 10:13] VITALS: BP 135/79
[2018-01-16] MEDS ORDERED: PREDNISONE 5 MG5 M1 PO (12:49)
[2018-01-16 13:32] VITALS: BP 127/68
[2018-01-16 14:00] VITALS: BP 127/68
[2018-01-16 20:12] VITALS: BP 148/75
[2018-01-17 03:59] VITALS: BP 143/66
[2018-01-17 07:48] VITALS: BP 108/63
[2018-01-17 16:57] VITALS: BP 126/73
[2018-01-17 20:22] VITALS: BP 114/65
[2018-01-18 04:32] VITALS: BP 115/69
[2018-01-18 07:00] VITALS: BP 125/66
[2018-01-18 17:00] VITALS: BP 150/82
[2018-01-18 18:06] VITALS: BP 137/67
[2018-01-18 19:36] VITALS: BP 114/62
[2018-01-18 21:34] LABS: HEMATOCRIT 25.1 % (37.0-47.0); MCH 28.6 pg (26.0-34.0); MCHC 32.1 g/dL (28.0-37.0); MCV 89.1 fL (80.0-100.0); RBC 2.81 mil/uL (4.20-5.00); RDW 14.9 % (10.5-14.5); WBC 17.5 thou/uL (4.0-11.0)
[2018-01-18 21:42] LABS: CALCIUM 9.1 mg/dL (8.5-10.1)
[2018-01-19 05:35] VITALS: BP 143/58
[2018-01-19 06:02] LABS: HEMATOCRIT 24.7 % (37.0-47.0); HEMOGLOBIN 7.9 gm/dL (12.0-15.0)
[2018-01-19 06:19] LABS: POTASSIUM 5.2 mmol/L (3.5-5.1)
[2018-01-19 07:28] VITALS: BP 131/57
[2018-01-19 12:31] VITALS: BP 131/57
[2018-01-19 16:55] VITALS: BP 138/70
[2018-01-19 21:02] VITALS: BP 129/58
[2018-01-20 04:44] VITALS: BP 133/59
[2018-01-20 07:30] VITALS: BP 122/66
[2018-01-20 16:35] VITALS: BP 129/56
[2018-01-20 19:47] VITALS: BP 133/63
[2018-01-21 05:39] VITALS: BP 135/65
[2018-01-21 08:07] VITALS: BP 124/68
[2018-01-21] MEDS ORDERED: ENOXAPARIN40 MG/0.1 SUBQ (12:26)
[2018-01-21] MEDS ORDERED: NICOTINE1 EAC2 TRANSDERM (12:26)
[2018-01-21] MEDS ORDERED: NOVOLOG100 UNIT/1 SUBQ (12:26)
[2018-01-21] MEDS ORDERED: LIDOCAINE VISC100 ML PO (12:26)
[2018-01-21] MEDS ORDERED: ACETAMINOPHEN325 M1 PO (12:26)
[2018-01-21 16:57] VITALS: BP 139/60
[2018-01-21 19:16] VITALS: BP 132/56
[2018-01-22 03:10] VITALS: BP 152/73
[2018-01-22 07:02] VITALS: BP 147/66
[2018-01-22 20:15] VITALS: BP 151/72
[2018-01-23 05:08] VITALS: BP 156/73
[2018-01-23 07:11] VITALS: BP 151/80
[2018-01-23 11:05] LABS: HEMATOCRIT 23.8 % (37.0-47.0); HEMOGLOBIN 7.4 gm/dL (12.0-15.0); MCHC 31.2 g/dL (28.0-37.0); MCV 89.8 fL (80.0-100.0); RBC 2.65 mil/uL (4.20-5.00); WBC 12.4 thou/uL (4.0-11.0)
[2018-01-23 11:18] LABS: ALBUMIN 2.5 g/dL (3.4-5.0); CALCIUM 9.2 mg/dL (8.5-10.1); CREATININE 1.9 mg/dL (0.6-1.0); POTASSIUM 4.6 mmol/L (3.5-5.1); TOTAL BILIRUBIN 0.2 mg/dL (<0.1-1.0); TOTAL PROTEIN 6.2 g/dL (6.4-8.2)
[2018-01-23 11:27] LABS: MAGNESIUM 0.7 mg/dL (1.8-2.4)
[2018-01-23 19:29] VITALS: BP 160/94
[2018-01-24 05:12] VITALS: BP 132/62
[2018-01-24 05:51] LABS: HEMATOCRIT 24.3 % (37.0-47.0); HEMOGLOBIN 7.7 gm/dL (12.0-15.0); MCH 28.2 pg (26.0-34.0); MCHC 31.8 g/dL (28.0-37.0); MCV 88.6 fL (80.0-100.0); RBC 2.75 mil/uL (4.20-5.00); RDW 14.8 % (10.5-14.5); WBC 12.4 thou/uL (4.0-11.0)
[2018-01-24 06:08] LABS: CALCIUM 8.7 mg/dL (8.5-10.1); CREATININE 1.9 mg/dL (0.6-1.0)
[2018-01-24 06:47] LABS: MAGNESIUM 0.7 mg/dL (1.8-2.4)
[2018-01-24 07:30] VITALS: BP 114/54
[2018-01-24 10:27] VITALS: BP 131/57
[2018-01-24 16:00] VITALS: BP 139/70
[2018-01-24 20:37] VITALS: BP 135/65
[2018-01-25 03:58] LABS: ABSOLUTE NEUTROPHILS 8.3 thou/uL (1.4-8.2); BASOPHILS 0.5 % (0.0-2.0); EOSINOPHILS 2.8 % (0.0-3.0); HEMOGLOBIN 7.8 gm/dL (12.0-15.0); LYMPHOCYTES 23.7 % (24.0-44.0); MCH 27.9 pg (26.0-34.0); MCHC 31.2 g/dL (28.0-37.0); MCV 89.4 fL (80.0-100.0); MONOCYTES 10.4 % (1.0-8.0); PLATELET COUNT 317 thou/uL (150-400); POLYS 62.6 % (36.0-66.0); RBC 2.79 mil/uL (4.20-5.00); RDW 14.9 % (10.5-14.5); WBC 13.3 thou/uL (4.0-11.0)
[2018-01-25 04:16] LABS: ALBUMIN 2.7 g/dL (3.4-5.0); CALCIUM 9.3 mg/dL (8.5-10.1); MAGNESIUM 2.1 mg/dL (1.8-2.4); POTASSIUM 5.4 mmol/L (3.5-5.1); URIC ACID* 7.1 mg/dL (2.6-7.2)
[2018-01-25 05:10] VITALS: BP 160/61
[2018-01-25 08:09] VITALS: BP 145/63
[2018-01-25 16:32] VITALS: BP 136/63
[2018-01-25 19:09] VITALS: BP 126/65
[2018-01-26 04:09] VITALS: BP 142/74
[2018-01-26 07:27] VITALS: BP 96/83
[2018-01-26 16:55] VITALS: BP 149/63
[2018-01-26 19:33] VITALS: BP 126/46
[2018-01-27 03:34] VITALS: BP 149/66
[2018-01-27 07:01] VITALS: BP 136/59
[2018-01-27 16:25] VITALS: BP 120/61
[2018-01-27 20:00] VITALS: BP 131/92; BP 134/56
[2018-01-28 04:30] VITALS: BP 145/70
[2018-01-28 07:35] VITALS: BP 132/49
[2018-01-28 19:32] VITALS: BP 116/52
[2018-01-29 02:17] VITALS: BP 135/64
[2018-01-29 07:09] VITALS: BP 140/60
[2018-01-29 11:08] VITALS: BP 140/60
== END 2018-01-29 14:00 | DRG 492 ==
LOC: ER 10:12 → EROBS 12:27 → 4E 14:45
PROVIDERS: Anesthesiology; Hospitalist; Internal Medicine; Orthopaedic Surgery Foot and Ankle Surgery
PROC: 2W3RX1Z Immobilization of Left Lower Leg using Splint (ICD-10-PCS; principal; 2018-01-16)
PROC: 0QSH04Z Reposition Left Tibia with Internal Fixation Device, Open Approach (ICD-10-PCS; 2018-01-18)
DX: S82.55XA Nondisplaced fracture of medial malleolus of left tibia, initial encounter for closed fracture (principal); N17.0 Acute kidney failure with tubular necrosis; Z68.41 Body mass index [BMI] 40.0-44.9, adult; I50.32 Chronic diastolic (congestive) heart failure; I13.0 Hypertensive heart and chronic kidney disease with heart failure and stage 1 through stage 4 chronic kidney disease, or unspecified chronic kidney disease; D62 Acute posthemorrhagic anemia; M10.9 Gout, unspecified; S82.402A Unspecified fracture of shaft of left fibula, initial encounter for closed fracture; K21.9 Gastro-esophageal reflux disease without esophagitis; E78.5 Hyperlipidemia, unspecified; M15.9 Polyosteoarthritis, unspecified; E83.42 Hypomagnesemia; N18.9 Chronic kidney disease, unspecified; F17.210 Nicotine dependence, cigarettes, uncomplicated; E11.22 Type 2 diabetes mellitus with diabetic chronic kidney disease; E66.01 Morbid (severe) obesity due to excess calories; I48.2 Chronic atrial fibrillation; G89.29 Other chronic pain; K12.0 Recurrent oral aphthae; M54.9 Dorsalgia, unspecified; W01.0XXA Fall on same level from slipping, tripping and stumbling without subsequent striking against object, initial encounter; Y93.89 Activity, other specified; Y92.89 Other specified places as the place of occurrence of the external cause; Y99.8 Other external cause status; Z95.810 Presence of automatic (implantable) cardiac defibrillator; Z90.49 Acquired absence of other specified parts of digestive tract; Z79.82 Long term (current) use of aspirin; Z79.899 Other long term (current) drug therapy; Z88.8 Allergy status to other drugs, medicaments and biological substances; Z71.6 Tobacco abuse counseling
CPT/HCPCS: 10084; 50010; 50101; 50341; 50386; 51412; 54330; 55430; 56524; 56525; 56667; 57091; 57181; 62110; 62900; 70005

== ENCOUNTER 2018-06-10 20:38 | Inpatient (IN) | payer OTHER ==
[~2018-06-10] VITALS: Ht 162.6 cm; Wt 120.2 kg
[~2018-06-10 20:38] MED LIST changes: +ACETAMINOPHEN325 M1 PO; +ENOXAPARIN40 MG/0.1 SUBQ; +LIDOCAINE VISC100 ML PO; +NICOTINE1 EAC2 TRANSDERM; +NOVOLOG100 UNIT/1 SUBQ
[2018-06-10 20:39] VITALS: BP 177/88
[2018-06-10] MEDS ORDERED: PACERONE 200 M200 M1 PO (20:40)
[2018-06-10] MEDS ORDERED: COREG25 MG PO (20:41)
[2018-06-10] MEDS ORDERED: ULORIC80 MG PO (20:43)
[2018-06-10] MEDS ORDERED: PREPLUS CA-FE1 EACH PO (20:44)
[2018-06-10] MEDS ORDERED: PERCOCET 10-321 EAC1 PO (20:49)
[2018-06-10 21:04] LABS: HEMATOCRIT 27.6 % (37.0-47.0); HEMOGLOBIN 8.9 gm/dL (12.0-15.0); MCH 28.5 pg (26.0-34.0); MCHC 32.2 g/dL (28.0-37.0); MCV 88.5 fL (80.0-100.0); PLATELET COUNT 341 thou/uL (150-400); RBC 3.12 mil/uL (4.20-5.00); RDW 15.3 % (10.5-14.5); WBC 12.7 thou/uL (4.0-11.0)
[2018-06-10 21:13] LABS: ANION GAP 10 mmol/L (7-16); BUN 46 mg/dL (7-18); CALCIUM 8.4 mg/dL (8.5-10.1); CHLORIDE 104 mmol/L (98-107); CO2 23 mmol/L (21-32); CREATININE 2.5 mg/dL (0.6-1.0); GLUCOSE 109 mg/dL (74-106); POTASSIUM 4.8 mmol/L (3.5-5.1); SODIUM 137 mmol/L (136-145)
[2018-06-10 21:22] LABS: TROPONIN-I <0.06 ng/mL (<0.06)
[2018-06-10 21:39] LABS: ABSOLUTE NEUTROPHILS 9.4 thou/uL (1.4-8.2)
[2018-06-10 21:40] LABS: ANISOCYTOSIS 2+; NUCLEATED RBCS 1 /100WBC; POLYCHROMASIA OCCASIONAL
[2018-06-10 22:28] VITALS: BP 177/88
[2018-06-10 23:58] VITALS: BP 141/71
[2018-06-11 00:20] VITALS: BP 158/85
--- NOTE | 2018-06-11 03:17 | NUR ---
PT ARRIVED UNIT FROM ER AT ABOUT 2345. PT A/OX4, VITAL SIGNS STABLE WITH SBP IN 150'S. PT NSR ON THE MOINITOR, ON 3.5L O2 WHICH IS HER BASELINE. PT COMPLAINED OF SOME CHEST PAIN RATED AT 8. PT ALSO COMPLAINED OF LEFT ANKLE PAIN FROM HER FRACTURE BACK IN DECEMBER. PAIN MANAGED WITH REPOSITIONING. PAIN MEDICATION AVAILABLE TO GIVE NEEDED. PT'S CHEST PAIN SEEMED TO BE RESOLVED PT WAS RESTING COMFORTBLY IN BED. ADMISSION COMPLETED. CONSENTS SIGNED. PT EDUCATED TO REPORT CHEST PAIN PROMPTLY. HOURLY ROUNDING COMPLETED. FALL PRECAUTIONS IN PLACE. PT CONTINUES TO REST COMFORTABLY IN BED. WILL CONTINUE TO CLOSELY MONITOR.
[2018-06-11 03:40] VITALS: BP 131/75
[2018-06-11 08:00] VITALS: BP 125/78
--- NOTE | 2018-06-11 10:59 | EKG ---
[place] [address] [facility] [place] [address] ELECTROCARDIOGRAM REPORT Name: HUMBERTO SMITH Room #: 207-P ADM IN M.R.#: [id number] ������������������ Admission: 06/10/18 ������������������ Attend Phys: Roque Peters MD Discharge: ������������������ Date of : 60 Report #: [id number] ����������������������������������������������������������������� [id number] THIS REPORT FOR: //name// [facility] ED Test Date: 2018-06-10 Test Time: 20:42:24 Pat Name: HUMBERTO SMITH Department: Room: 207 Gender: F Barnworker Groom: IVETTE : 1960 Requested By: Tabitha Oseguera Order Number: [id number] MD: Paulo Infante Measurements Intervals [place] Rate: 89 P: 42 AL: 160 QRS: 2 QRSD: 90 T: 42 QT: 384 QTc: 468 Interpretive Statements Sinus rhythm Probable left atrial enlargement Poor R-wave progression Compared to ECG 05/27/2017 18:43:18 No significant change Electronically Signed On 06-11-2018 10:59:04 CDT by Paulo Infante [email or web address] ��������������������������������������������� <ELECTRONICALLY SIGNED> ���������������������������������������� By: Paulo Infante MD ��������������������������������������������� 06/11/18 1059 41 41 Paulo Infante MD /BILLY
[2018-06-11 11:34] VITALS: BP 137/72
--- NOTE | 2018-06-11 18:09 | NUR ---
AAOX4. PLEASANT AND COOPERATIVE. TAKES PERCOCET FOR LEFT ANKLE PAIN. GOOD APPETITE. LEFT AC SALINE LOCK. FAMILY AT BEDSIDE MOST OF DAY. LUNGS CLEAR.
[2018-06-11 20:15] VITALS: BP 136/69
[2018-06-12 04:15] VITALS: BP 155/79
[2018-06-12 04:19] LABS: HEMATOCRIT 26.1 % (37.0-47.0); HEMOGLOBIN 8.3 gm/dL (12.0-15.0); MCH 28.3 pg (26.0-34.0); MCHC 31.8 g/dL (28.0-37.0); MCV 89.1 fL (80.0-100.0); RBC 2.93 mil/uL (4.20-5.00); RDW 15.1 % (10.5-14.5); WBC 21.4 thou/uL (4.0-11.0)
[2018-06-12 04:28] LABS: CALCIUM 8.5 mg/dL (8.5-10.1); CREATININE 2.6 mg/dL (0.6-1.0)
--- NOTE | 2018-06-12 04:30 | NUR ---
ASSUMED PT CARE AT 1900. A/OX4, VITAL SIGNS STABLE, ASSESSMENT CHARTED. NO COMPLAINTS OF CHEST PAIN, ANKLE PAIN ADEQAUTELY MANAGED WITH CHEST PAIN. PT COMFORTABLE ON RA. PT ABLE TO AMBULATE TO THE BATHROOM BUT CALL APPROPRIATELY TO GET HER BED DISARMED BEFORE GETTING OUT OF BED. EDUCATION PROVIDED ABOUT FALL RISK PREVENTION AND IMPORTANCE OF BED ALARM. PT RESTED WELL THROUGH THE NIGHT. PROGRESSING TOWARD PLAN OF CARE. WILL CONTINUE TO MONITOR.
[2018-06-12 07:50] VITALS: BP 134/74
[2018-06-12 12:34] VITALS: BP 135/68
--- NOTE | 2018-06-12 16:22 | NUR ---
ASSUMED CARE OF PT AT 0700. PT A&OX4, UP WITH STANDBY. PT HAD PAIN IN LEFT ANKLE FROM HISTORY OF FX. PT PARTIALLY CONTROLLED WITH MEDICATION, HOWEVER PT STATES SHE TAKES 2X THE AMOUNT OF PAIN MED AT HOME THAN ALLOWED HERE. PT REMEMBERED THAT SHE HAD A HISTORY OF PE. NOTIFIED AND ORDERED D-DIMER (ELEVATED) AND VQ SCAN. PT VITALS WITHIN NORMAL LIMITS AND PT WAS SINUS RHYTHM WITH PAC ON TELEMETRY. WILL CONT WITH POC.
[2018-06-12 16:23] VITALS: BP 159/81
[2018-06-12 18:22] VITALS: BP 132/78
[2018-06-12 19:22] VITALS: BP 132/78
--- NOTE | 2018-06-13 03:00 | NUR ---
ASSUMED PT CARE AT 1900. PT A/OX4. VITAL SIGNS STABLE, ASSESSMENTAS CHARTED. PT ON 3L 02 WHICH SHE USES INTERMITTENTLY. PAIN ADEQAUTELY MANAGED WITH PAIN MEDICATION. NO COMPLAINTS OF CHEST PAIN. PT RESTED CONFORTABLY THROUGH THE NIGHT. PROGRESSING TOWARD PLAN OF CARE. CT CHEST IN AM. WILL CONTINUE TO MONITOR.
[2018-06-13 04:00] VITALS: BP 142/77
[2018-06-13 04:38] LABS: CALCIUM 8.9 mg/dL (8.5-10.1); CREATININE 2.4 mg/dL (0.6-1.0); POTASSIUM 5.9 mmol/L (3.5-5.1)
[2018-06-13 04:42] LABS: HEMATOCRIT 25.4 % (37.0-47.0); HEMOGLOBIN 8.2 gm/dL (12.0-15.0); MCH 28.6 pg (26.0-34.0); MCHC 32.2 g/dL (28.0-37.0); MCV 88.8 fL (80.0-100.0); RBC 2.86 mil/uL (4.20-5.00); RDW 15.6 % (10.5-14.5); WBC 25.6 thou/uL (4.0-11.0)
--- NOTE | 2018-06-13 11:44 | NUR ---
Assess due to high BMI 45=extreme class III obesity. Admit with chest pain, hx chronic lung disease. On carb controlled diet order, BG 138-236. Somewhat frustrated with food trays-listened to concerns, apology. Feels food safety officer staff very helpful though. No questions regarding diet. Low nutrition risk
[2018-06-13 12:23] VITALS: BP 152/89
[2018-06-13 16:14] VITALS: BP 144/80
--- NOTE | 2018-06-13 16:46 | NUR ---
ASSUMED CARE OF PT AT 0700. PT A&OX4, UP AD SAPNA IN ROOM. PT HAS PAIN DUE TO HX OF RIGHT ANKLE FX. PAIN MANAGED PARTIALLY WITH MEDICATION AND REST. PT ON ROOM AIR AND HAS NOT COMPLAINED OF SHORTNESS OF BREATH. PT STATED SHE WAS HAVING A LUNG BIOPSY, HOWEVER THIS IS NOT ORDERED. PT HAD SLIGHLY HIGH BLOOD PRESSURE AND MEDS GIVEN AFTER VQ SCAN THIS AM. WILL CONT WITH POC.
[2018-06-13 20:07] VITALS: BP 128/67
--- NOTE | 2018-06-14 03:52 | NUR ---
ASSESSMENT DOCUMENTED.PT RESTING IN NO ACUTE DISTRESS.DENIES CHEST PAIN.VSS.C/O PAIN TO LEFT ANKLE,THAT IS CONTROLLED WITH PAIN MEDS.RA W/O RESP DISTRESS.AMBULATED ON THE HALLWAY,TOLERATED.POC IS TO CONT WITH CURRENT ORDERS.WILL CONT TO MONITOR PER POC.
[2018-06-14 04:26] VITALS: BP 121/62
--- NOTE | 2018-06-14 07:50 | 2DMMODE ---
[facility] [address] [facility] [place] [address] 2 D/M-MODE ECHOCARDIOGRAM Name: HUMBERTO SMITH Room #: 207-P ADM IN M.R.#: [id number] ������������� Admission: 06/10/18 ������������� Attend Phys: Getachew Ceja MD Discharge: ��� ������������� ��� Date of : 60 Date of Service: 06/14/18 0750 �� Report #: [id number] �������� ��������������������������������������������[id number] THIS REPORT FOR: //name// APPROVED REPORT Study performed: 06/14/2018 06:57:39 EXAM: Comprehensive 2D, Doppler, and color-flow Echocardiogram Patient Location: Bedside Room #: 207 Status: routine BSA: 2.20 HR: 74 bpm BP: 121/62 mmHg Rhythm: NSR Other Information Study Quality: Adequate Technically limited study due to morbid obesity. Indications Dyspnea Chest Pain Hx: CHF, Afib, Pacer/Defib, COPD, DM, HTN, HLP. 2D Dimensions RVDd: 41.14 mm IVSd: 12.00 (7-11mm) LVOT Diam: 22.11 (18-24mm) LVDd: 58.00 mm PWd: 12.00 (7-11mm) Ascending Ao: 33.22 (22-36mm) LVDs: 42.00 (25-40mm) Aortic Root: 33.22 mm Volumes Left Atrial Volume (Systole) Single Plane 4CH: 106.77 mL Single Plane 2CH: 79.94 mL LA ESV Index: 45.00 mL/m2 Aortic Valve AoV Peak Abdi.: 1.55 m/s AO Peak Gr.: 9.60 mmHg LVOT Max P.03 mmHg LVOT Max V: 0.87 m/s BUD Vmax: 2.16 cm2 [facility] [address] [place] [address] 2 D/M-MODE ECHOCARDIOGRAM Name: HUMBERTO SMITH Room #: 207-P [facility] IN .R.#: [id number] ������������� Admission: 06/10/18 ������������� Attend Phys: Getachew Ceja MD Discharge: ��� ������������� ��� Date of : 60 Date of Service: 06/14/18 0750 �� Report #: [id number] �������� ��������������������������������������������[id number] Mitral Valve E/A Ratio: 0.8 MV Decel. Time: 235.51 ms MV E Max Abdi.: 0.93 m/s MV A Abdi.: 1.19 m/s MV PHT: 68.30 ms IVRT: 96.89 ms Pulmonary Valve PV Peak Abdi.: 1.30 m/s PV Peak Gr.: 6.80 mmHg Pulmonary Vein P Vein S: 0.69 m/s P Vein A: 0.28 m/s P Vein D: 0.42 m/s P Vein A Dur.: 106.1 msec P Vein S/D Ratio: 1.64 Tricuspid Valve TR Peak Abdi.: 3.09 m/s RAP Estimate: 5.00 mmHg TR Peak Gr.: 38.27 mmHg PA Pressure: 43.00 mmHg Left Ventricle Left ventricle is at the upper limits of normal. There is normal LV segmental wall motion. Mild concentric left ventricular hypertrophy. Left ventricular systolic function is normal. LVEF is 50-55%. Mild diastolic dysfunction is present (impaired relaxation pattern). Right Ventricle The right ventricle is normal size. The right ventricular systolic function is normal. Device lead is present in the right ventricle. Atria Left atrium is moderately dilated. Right atrium is mildly dilated. Aortic Valve The aortic valve is normal in structure. No aortic regurgitation is present. There is no aortic valvular stenosis. Mitral Valve The mitral valve is normal in structure. Moderate mitral regurgitation. Tricuspid Valve The tricuspid valve is normal in structure. Moderate tricuspid [facility] [address] [place] [address] 2 D/M-MODE ECHOCARDIOGRAM Name: HUMBERTO SMITH Room #: 207-P [facility]#: [id number] ������������� Admission: 06/10/18 ������������� Attend Phys: Getachew Ceja MD Discharge: ��� ������������� ��� Date of : 60 Date of Service: 06/14/18 0750 �� Report #: [id number] �������� ��������������������������������������������[id number] regurgitation. Estimated PAP is 40-45mmHg. Pulmonic Valve The pulmonary valve is normal in structure. Trace pulmonic regurgitation. Great Vessels The aortic root is normal in size. The ascending aorta is normal in size. IVC is normal in size and collapses <50% with inspiration. Pericardium There is no pericardial effusion. <Conclusion> Left ventricular systolic function is normal. There is normal LV segmental wall motion. LVEF is 50-55%. Mild diastolic dysfunction Left atrium is moderately dilated. The aortic valve is normal in structure. No aortic regurgitation or stenosis The mitral valve is normal in structure. Moderate mitral regurgitation. Moderate tricuspid regurgitation. Estimated pulmonary artery pressure of 40-45mmHg. There is no pericardial effusion. ��������������������������������������������� <ELECTRONICALLY SIGNED> ���������������������������������������� By: Roshan Chicas MD, FACC ��������������������������������������������� 06/14/18 0750 075 0750 Roshan Chicas MD, FACC /INF
[2018-06-14 07:56] VITALS: BP 143/85
[2018-06-14 10:59] VITALS: BP 159/87
--- NOTE | 2018-06-14 16:57 | NUR ---
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 She reports no steps to enter. She has 3 sons and many grandchildren. Her sister apt cost estimating manager and her niece lives in apt complex. 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 She has a walker as needed. She is up ad pritesh in her room. She has homemaker care services. she has home oxygen she uses prn and home nebulizer. Patient plans home no needs.
--- NOTE | 2018-06-14 19:21 | NUR ---
REPORT RECIEVED AT 0720. O X 4, CONCERNED THAT PAIN NOT BEING CONTROLLED. SPOKE WITH MD AND PATIENT NOW ON HER HOME REGIMEN OF 20MG OXY Q4. BETTER PAIN CONTROL PER PATIENT. INTERMITTENT UPPER ABDOMINAL PAIN NOTED. SPUTUM AND NASAL SWAB SENT TO LAB.
[2018-06-14 20:35] VITALS: BP 124/83
[2018-06-15 04:45] VITALS: BP 136/66
[2018-06-15 06:11] LABS: IgG 790 mg/dL (700-1600)
[2018-06-15 07:31] VITALS: BP 153/77
[2018-06-15 11:26] VITALS: BP 148/83
[2018-06-15 15:19] VITALS: BP 142/79
[2018-06-15 19:55] VITALS: BP 149/74
[2018-06-16 04:07] VITALS: BP 148/71
--- NOTE | 2018-06-16 04:47 | NUR ---
ASSUMED PT CARE AT 1900. PT A/OX4, VITAL SIGNS STABLE, ASSESSMENT CHARTED. PAIN ADEQAUTELY MANAGED WITH PAIN MEDICATION. AT ABOUT 0400, PT COMPLAINED OF FEELING GITTERY AND REQUESTED THAT HER BLOOD PRESSURE BE TAKEN. BP WAS 148/88. PT MENTIONED SHE WILL TALK TO PHYSICIAN WHEN THEY ROUND. PT SEEMED OK. MORE FREQUENT MONITORING. PT RESTED WELL THROUGH THE NIGHT UNTILL 0400. WILL CONTINUE TO MONITOR.
[2018-06-16 07:04] VITALS: BP 147/73
[2018-06-16 09:16] LABS: CALCIUM 9.4 mg/dL (8.5-10.1); CREATININE 2.7 mg/dL (0.6-1.0); POTASSIUM 5.5 mmol/L (3.5-5.1)
--- NOTE | 2018-06-16 10:27 | NUR ---
ORDER REC'D FOR OT EVAL AND TREAT. PATIENT DECLINES NEED FOR OT AT THIS TIME SAYING THAT SHE IS INDEP. W/SELFCARES AT HOME AND HAS A CAREGIVER FOR IADLS DAILY.
[2018-06-16 11:23] VITALS: BP 170/76
--- NOTE | 2018-06-16 13:26 | NUR ---
ORDER REC'D FOR OT EVAL AND TREAT. EVAL INITIATED AND PATIENT STATED THAT SHE COULD DO ALL HER OWN ADLS, HAD SHOWERED W/O ASSIST AND WAS GETTING UP TO THE BATHROOM W/O ASSIST. PATIENT DENIES NEED FOR OCCUPATIONAL THERAPY AND WILL BE DISCHARGED FROM OT SERVICES PER HER WISHES.
[2018-06-16 16:22] VITALS: BP 149/65
--- NOTE | 2018-06-16 17:10 | NUR ---
PT CARE ASSUMED APPROX 0700. PT ALERT AND ORIENTED X4. DENIES SOA. REPORTS LEFT LEG PAIN (CHRONIC) 09/28. PERCOCET MANAGING PAIN. VSS. BS ELEVATED. PT REPORTED THIS AM THAT SHE WOUND COMPLY WITH SSI SO LOW DOSE ORDERED AND CONTROLLING HYPERGLYCEMIA RESULTED FROM STEROIDS USE. PT AMBULATED ON THE UNIT X1. STEADY WITH WALKER. P/T APPROVED PT FOR INDEPENDENT WALKER USE. CV AND RENAL CONSULTED AFTER TREND UP IN CREAT[place]INE COULD BE FROM LASIX USE. CV CASH REGISTER SERVICER CHANGED FRQUENCY OF LASIX. K+ ELEVATED. DC'D AND DIET CHANGED TO LOW K+. PT AWARE. PT DENIES QUESTIONS AND CONCERNS REGARDING POC. NO DISTRESS NOTED.
[2018-06-16 19:55] VITALS: BP 150/71
--- NOTE | 2018-06-17 02:03 | NUR ---
ASSUMED CARE AROUND 1900. AXOX4. COPD EXACERBATION/CHEST PAIN. DENIES CHEST PAIN OR SOB/SOA AT THIS TIME. LLE PAIN DUE TO RECENT SURGERY. PAIN MANAGED PER MD ORDER. ON IV STEROID THERAPY. INSULIN ADMIN PER MD ORDER. NO S/S ACUTE DISTRESS NOTED OR REPORTED AT THIS TIME. WILL CONT TO MONITOR FOR ANY CHANGES IN CONDITION.
[2018-06-17 04:45] VITALS: BP 145/63
[2018-06-17 07:38] VITALS: BP 141/82
[2018-06-17 08:39] LABS: CALCIUM 9.6 mg/dL (8.5-10.1); CREATININE 2.5 mg/dL (0.6-1.0)
[2018-06-17 10:08] LABS: URINE CREATININE-RANDOM* 49.7 mg/dL; URINE PROTEIN-RANDOM* 9.4 mg/dL (<11.9)
[2018-06-17 10:12] LABS: URINE BILIRUBIN NEGATIVE (Negative); URINE BLOOD NEGATIVE (Negative); URINE CLARITY CLEAR; URINE COLOR YELLOW; URINE GLUCOSE-RANDOM* NEGATIVE (Negative); URINE KETONES NEGATIVE (Negative); URINE LEUKOCYTES NEGATIVE (Negative); URINE NITRITE NEGATIVE (Negative); URINE PROTEIN (DIPSTICK) NEGATIVE (Negative); URINE UROBILINOGEN 0.2 E.U./dl (0.2-1.0)
--- NOTE | 2018-06-17 10:17 | NUR ---
ASSUMED CARE THIS AM, SHIFT ASSESSMENT DONE, MEDS GIVEN, VSS. REPORTED PAIN TO LEFT SIDE, GENERALIZED, PRN PAIN MEDS GIVEN. FSBS WAS 132, DID NOT NEED ANY COVERAGE. DENIES ANY CHEST PAIN THIS AM. WILL CONTINUE TO ASSESS AND ASSIST WITH ADLs NEEDED.
[2018-06-17 15:50] VITALS: BP 141/57
--- NOTE | 2018-06-17 17:37 | NUR ---
BP HAS BEEN STABLE THROUGHOUT THE DAY. FSBS AND COVERGE GIVEN , SEE eMAR. DID NOT REPORTED ANY PAIN THORUGHOUT THE DAY. WILL CONTINUE TO ASSESS AND ASSIST WITH ADLs NEEDED.
[2018-06-17 19:28] VITALS: BP 154/70
--- NOTE | 2018-06-18 03:32 | NUR ---
ASSUMED PT CAREAT 1900. PT A/O X4, VITAL SIGNS STABLE, ASSESSMENT CHARTED. PAIN ADEQAUTELY MANAGED WITH PAIN MEDICATION. NO COMPLAINTS OF CHEST PAIN. PT ABLE TO AMBULATE INDEPENDENTLY TO THE BATHROOM. CALL APPROPRIATELY. PT RESTED WELL THROUGH THE NIGHT. PROGRESSING TOWARD PLAN OF CARE. WILL CONTINUE TO MONITOR.
[2018-06-18 05:48] VITALS: BP 147/59
[2018-06-18 06:14] LABS: ALBUMIN 3.1 g/dL (3.4-5.0); CALCIUM 9.4 mg/dL (8.5-10.1); CREATININE 2.4 mg/dL (0.6-1.0); PHOSPHORUS 3.9 mg/dL (2.5-4.9); POTASSIUM 4.8 mmol/L (3.5-5.1)
[2018-06-18 09:33] VITALS: BP 158/78
[2018-06-18 12:46] VITALS: BP 158/89
[2018-06-18 16:30] VITALS: BP 154/92
--- NOTE | 2018-06-18 19:19 | NUR ---
PATIENT ALERT AND ORIENTED X4, PAIN MILDLY CONTROLLED WITH MEDICATION. ON ROOM AIR. SINUS RHYTHM TO SINUS TACHYCARDIA ON REHAB DIRECTOR OCCUPATIONAL THERAPIST. UP INDEPENDENTY. PATIENT UPDATED ON THE PLAN OF CARE. NO SIGNS OF ACUTE DISTRESS NOTED AT THIS TIME. WILL CONTINUE TO MONITOR.
[2018-06-18 19:52] VITALS: BP 132/61
--- NOTE | 2018-06-19 04:08 | NUR ---
ASSUMED PT CARE AT 1900. PT A/OX4, VITAL SIGNS STABLE, ASSESSMENT CHARTED. NO COMPLAINTS OF CHEST PAIN. PAIN ADEQAUTELY MANAGED WITH PAIN MEDICATION. PT RESTED WELL THROUGH THE NIGHT. PROGRESSING TOWARD PLAN OF CARE. WILL CONTINUE TO MONITOR.
[2018-06-19 04:18] VITALS: BP 142/68
[2018-06-19 05:17] LABS: HEMATOCRIT 28.8 % (37.0-47.0); HEMOGLOBIN 9.1 gm/dL (12.0-15.0); MCHC 31.6 g/dL (28.0-37.0); MCV 88.7 fL (80.0-100.0); PLATELET COUNT 261 thou/uL (150-400); RBC 3.25 mil/uL (4.20-5.00); RDW 15.7 % (10.5-14.5); WBC 28.9 thou/uL (4.0-11.0)
[2018-06-19 05:30] LABS: ALBUMIN 3.1 g/dL (3.4-5.0); CALCIUM 9.5 mg/dL (8.5-10.1); CREATININE 2.3 mg/dL (0.6-1.0); PHOSPHORUS 4.5 mg/dL (2.5-4.9)
[2018-06-19 05:35] LABS: POTASSIUM 5.2 mmol/L (3.5-5.1)
[2018-06-19 06:05] LABS: ABSOLUTE NEUTROPHILS 21.1 thou/uL (1.4-8.2)
[2018-06-19 06:06] LABS: ANISOCYTOSIS 1+; POLYCHROMASIA 1+
[2018-06-19 06:07] LABS: PLATELET ESTIMATE NORMAL
[2018-06-19 10:40] VITALS: BP 152/87
--- NOTE | 2018-06-19 17:30 | NUR ---
ALERT AND ORIENTED X4. C/O LT LOWER EXTR. PATIENT MEDICATED INDICATED. VSS AND AND WILL CONTINUE TO MONITOR.
[2018-06-19 19:55] VITALS: BP 136/70
[2018-06-20 01:05] LABS: GLYCOHEMOGLOBIN (HGB A1C) 5.8 % (4.8-5.6)
[2018-06-20 04:45] VITALS: BP 127/54
--- NOTE | 2018-06-20 04:52 | NUR ---
PT AMBULATING TO BATHROOM INDEPENDENTLY AND IS TOLERATING WELL. PERCOCET PROVIDING PAIN RELIEF. PLAN FOR DC HOME 06/20. RESTING COMFORTABLY. NO NEEDS VOICED. CALL LIGHT WITHIN REACH. WILL CONTINUE TO PROVIDE FREQUENT OBSERVATION.
[2018-06-20 07:32] VITALS: BP 130/57
[2018-06-20 09:04] LABS: ALBUMIN 3.6 g/dL (3.4-5.0); CALCIUM 9.9 mg/dL (8.5-10.1); CREATININE 2.4 mg/dL (0.6-1.0); PHOSPHORUS 4.4 mg/dL (2.5-4.9); POTASSIUM 5.2 mmol/L (3.5-5.1)
[2018-06-20] MEDS ORDERED: FUROSEMIDE 40 M40 M1 PO (10:30)
[2018-06-20] MEDS ORDERED: PREDNISONE 10 M10 MG PO (10:30)
--- NOTE | 2018-06-20 15:46 | NUR ---
ASSUMED CARE AT SHIFT CHANGE, ALERT AND ORIENTED X4. DENIES ANY CP AND VSS. BG BELOW 150. C/O LT FOOT PAIN MEDICATED NEEDED AND PATIENT REPORTED RELIEF. PATIENT WANTS TO TAKE PAINMEDS PRESCRIBED Q4 HRS, AND AWAKEN WHEN SLEEPIN TO KEEP PAIN UNDER CONTROL. AND WILL CONTINUE TO MONITOR PATIENT.
--- NOTE | 2018-06-20 16:34 | NUR ---
tenative plan dc home today but held today paitent not stable for dc home. Anticipate no dc needs. patient ambulates independently in room and to nurses station. casemgt following if possible HH at dc.
--- NOTE | 2018-06-20 17:16 | NUR ---
PATIENT TRANSFERRED FROM 207 TO SICU 221, PATIENT AMBULATED PER WALKER AND TECH WHEELED CART OF PERSONAL BELONGINGS, REPORTED PATIENT LEFT 2N SHE WAS READY TO TRANSFER TO SICU, PATIENT MADE COMFORTABLE IN ROOM, ORIENTED TO STAFF, AFTER VITALS TAKEN PATIENT INFORMED STAFF THAT PHYSICIAN GAVE PERMISSION FOR HER TO GO TO PHARMACY INDEPENDENTLY, PATIENT STATES SHE NEEDS PERSONAL ITEMS BECAUSE HOSPITAL SUPPLIES HAVE CAUSED A RASH, PATIENT AMBULATED TO OFF UNIT TO PHARMACY PER WALKER
[2018-06-20 20:15] VITALS: BP 134/73
[2018-06-20 20:20] VITALS: BP 134/73
--- NOTE | 2018-06-21 03:59 | NUR ---
Assumed pt. care at 1900. Pt A&Ox4; swallows meds whole w/o difficulty. Remains cont. B&B; ambulates independently w/ steady gait. Blood sugars WNL. Nicotine patch noted to R shoulder. Last BM 06/19/18, per pt. LAC SL noted; flushed w/ NS w/o difficulty; + blood return noted. Pt took shower on this shift. Pt. denies pain or discomfort, at this time. No s/s of acute distress noted. Pt. asleep in bed w/ call light/desired belongings within reach. PO fluids encouraged. Will continue to monitor.
[2018-06-21 07:27] LABS: HEMATOCRIT 30.1 % (37.0-47.0); HEMOGLOBIN 9.3 gm/dL (12.0-15.0); MCH 27.9 pg (26.0-34.0); MCV 89.9 fL (80.0-100.0); PLATELET COUNT 270 thou/uL (150-400); RBC 3.34 mil/uL (4.20-5.00); RDW 16.2 % (10.5-14.5); WBC 29.8 thou/uL (4.0-11.0)
[2018-06-21 08:22] VITALS: BP 140/66
--- NOTE | 2018-06-21 09:49 | NUR ---
Nutrition: pt seen per followup. Continues to eat well on carb controlled Low K+ diet. K-5.2. BUN-77, creat 2.4. BG 101-227. Pt voicing frustration over her K+ levels and stated she had been taking K+ pills at home for some time. Renal follows. Answered pt's diet related questions for CKD and provided materials. Pt was grateful. Continue as low risk. Planned D/C soon.
[2018-06-21 10:00] LABS: ABSOLUTE NEUTROPHILS 22.4 thou/uL (1.4-8.2); ANISOCYTOSIS 1+; METAMYELOCYTES 8 %; MYELOCYTES 4 %
--- NOTE | 2018-06-21 12:42 | NUR ---
SW reviewed chart and spoke with nursing and attending physician. Pt was [facility]. Plan is for pt to discharge home when medically stable. KARLIE is following to assist as needed with discharge planning.
[2018-06-21 15:18] VITALS: BP 140/66
[2018-06-21 17:54] VITALS: BP 150/84
--- NOTE | 2018-06-21 18:21 | NUR ---
ASSUMED PATIENT CARE AT 0715. PATIENT RESTING QUIETLY IN BED AT THAT TIME. PAIN WELL CONTROLLED WITH HYDROCODONE Q4H. TOLERATING DIET WELL. NO C/O OF SOB. UP INDEPENDENTLY AND TOLERATED WELL. O2 SAT 97% ON ROOM AIR. DISCHARGED HOME IN STABLE CONDITION.
--- NOTE | 2018-06-22 11:16 | HC ---
[facility] [place] [address] [place] [address] CONSULTATION Name: HUMBERTO SMITH Room #: 221-P [facility] IN M.R.#: [id number] Admission: 06/10/18 ������������������ Attend Phys: Getachew Ceja MD Discharge: 06/21/18 ������������������ Date of : 60 Report #: [id number] THIS REPORT FOR: //name// CC: Michel Ceja REASON FOR CONSULTATION: Elevated creatinine. HISTORY OF PRESENT ILLNESS: This is a 58-year-old with known chronic kidney disease and a baseline creatinine of around 2.0. She has had repeated episodes of hospitalizations or acute kidney injury. She has been evaluated by Dr. Salas in the past and an extensive workup has been done for her. She presented to the emergency room on the , reporting that she had issues with shortness of breath. This was associated with cough. She has COPD and had history of broncho-obliterans pneumonitis. She used to see Dr. Victoria. 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 She also has history of PE and had been taking only aspirin as an anticoagulation after she stopped taking her long-term anticoagulants. She has a pacemaker. She was admitted to further evaluate her shortness of breath. Diuresis was initiated. Creatinine on presentation was 2.5 and has climbed to 2.7 as of yesterday. I am being consulted to manage her acute kidney injury/chronic kidney disease. Cardiac workup had been initiated. She is currently followed by Cardiology and Pulmonology. PAST MEDICAL HISTORY: Extensive and includes the followin. Hypertension. 2. COPD. 3. Status post AICD. 4. Chronic kidney disease. 5. Cholecystectomy. 6. Tubal ligation. 7. Diastolic dysfunction. 8. Appendectomy. 9. PE. 10. Foot surgery. SOCIAL HISTORY: She is a current everyday smoker. No drug or alcohol abuse. ALLERGIES: WILLIAM INHIBITORS. REVIEW OF SYSTEMS: GENERAL: Significant for weakness. CARDIOVASCULAR: Significant for shortness of breath and chest pain. PULMONARY: As per the history of present illness. GASTROINTESTINAL: No nausea or vomiting. GENITOURINARY: No frequency and no urgency. MEDICATIONS: Outpatient medications include the following: [facility] [address] [place] [address] CONSULTATION Name: HUMBERTO SMITH Room #: 221-P [facility].#: [id number] Admission: 06/10/18 ������������������ Attend Phys: Getachew Ceja MD Discharge: 06/21/18 ������������������ Date of : 60 Report #: [id number] 1. Amiodarone. 2. Carvedilol. 3. Amlodipine. 4. Aspirin. 5. Potassium: PHYSICAL EXAMINATION: GENERAL: She is alert and oriented. VITAL SIGNS: Blood pressure is 145/63. HEAD AND NECK: No jugular venous distention. CHEST: No crackles. CARDIOVASCULAR: No rub. ABDOMEN: Soft and nontender. LOWER EXTREMITIES: No edema. LABORATORY DATA: Laboratory values reviewed. Chemistry from yesterday revealed a sodium of 133, potassium of 5.5, BUN of 83 and creatinine of 2.7. ASSESSMENT, IMPRESSION AND PLAN: 1. Acute kidney injury. 2. Chronic kidney disease with a baseline creatinine of around 2.0. 3. Ischemic cardiomyopathy. 4. Diastolic heart failure. 5. Hyperkalemia. 6. Hypertension. 7. History of pulmonary embolism. 8. Really, it is difficult to horse show judge the patient's intravascular volume. Given the fact that her BUN and creatinine are climbing up with the diuresis, I would discontinue her diuretics at this point. We will initiate very basic acute kidney injury workup. 9. Treat her hyperkalemia. 10. Continue to address her blood pressure, her lung issues. 11. We will continue to follow along. ��������������������������������������������� <ELECTRONICALLY SIGNED> ���������������������������������������� By: Toney Salas MD ��������������������������������������������� 06/22/18 1116 0824 0012 Livier Contreras MD /nt
== END 2018-06-21 18:10 | disposition home or self-care (01) | DRG 682 ==
LOC: ER 20:38 → EROBS 22:09 → 2N 22:09 → SICU 06-20 16:51 → ENTRNSPT 06-21 18:02 → SICU 06-21 18:10
PROVIDERS: Emergency Medicine; Family Medicine; Hospitalist; Nurse Practitioner Adult Health; Pediatrics; ADMIT Hospitalist
DX: N17.9 Acute kidney failure, unspecified (principal); I50.33 Acute on chronic diastolic (congestive) heart failure; J96.21 Acute and chronic respiratory failure with hypoxia; J96.22 Acute and chronic respiratory failure with hypercapnia; J18.9 Pneumonia, unspecified organism; J44.1 Chronic obstructive pulmonary disease with (acute) exacerbation; Z68.42 Body mass index [BMI] 45.0-49.9, adult; J44.0 Chronic obstructive pulmonary disease with (acute) lower respiratory infection; I13.0 Hypertensive heart and chronic kidney disease with heart failure and stage 1 through stage 4 chronic kidney disease, or unspecified chronic kidney disease; K21.9 Gastro-esophageal reflux disease without esophagitis; E66.01 Morbid (severe) obesity due to excess calories; E78.5 Hyperlipidemia, unspecified; G89.29 Other chronic pain; M54.9 Dorsalgia, unspecified; F17.210 Nicotine dependence, cigarettes, uncomplicated; I25.5 Ischemic cardiomyopathy; E87.5 Hyperkalemia; M10.9 Gout, unspecified; G47.33 Obstructive sleep apnea (adult) (pediatric); D64.9 Anemia, unspecified; E11.22 Type 2 diabetes mellitus with diabetic chronic kidney disease; N18.4 Chronic kidney disease, stage 4 (severe); I48.0 Paroxysmal atrial fibrillation; E11.65 Type 2 diabetes mellitus with hyperglycemia; D72.829 Elevated white blood cell count, unspecified; Z90.49 Acquired absence of other specified parts of digestive tract; Z95.0 Presence of cardiac pacemaker; Z88.8 Allergy status to other drugs, medicaments and biological substances; Z86.711 Personal history of pulmonary embolism; Z79.82 Long term (current) use of aspirin; Z79.899 Other long term (current) drug therapy
CPT/HCPCS: 10081; 15002

== ENCOUNTER → 2018-08-04 | Outpatient (CLI) | payer OTHER ==
[~2018-08-04] MED LIST changes: +COREG25 MG PO; +PERCOCET 10-321 EAC1 PO; +PREPLUS CA-FE1 EACH PO
== END ==
LOC: ULTRA 14:06
DX: M79.89 Other specified soft tissue disorders (principal); M79.661 Pain in right lower leg

== ENCOUNTER → 2018-09-25 | Outpatient (CLI) | payer OTHER ==
--- NOTE | 2018-09-26 23:40 | SLE ---
[facility] [place] [address] POLYSOMNOGRAPHY STUDY Name: HUMBERTO SMITH [facility] [id number] Admission: 09/25/18 ������������������ Attend Phys: Harry Coleman MD Discharge: ������������������ Date of : 60 Report #: [id number] THIS REPORT FOR: //name// CC: Harry Saxena MD DATE OF SERVICE: 09/25/2018 SLEEP STUDY ATTENDING PHYSICIAN: Tay Saxena MD. The patient is a 58-year-old who weighs 249 pounds with a BMI of 42.7. The patient's [place] score was 10. The patient underwent diagnostic sleep study performed at [facility]. During the night study, the patient spent 447 minutes in bed and slept for 273 minutes with a low sleep efficiency of 61%. Sleep latency was 8 minutes with a REM latency of 35 minutes, which was short. The patient's sleep architecture showed a normal stage 1 sleep, increased stage 2 sleep, normal N3 sleep and reduced REM sleep, which was 12% of the total sleep time. During the night study, the patient had no apneas, but 33 hypopneas. The patient's apnea hypopnea index was 7.2 per hour with a REM index of 49.7 per hour. The patient had 35 minutes of total REM sleep. The patient's supine AHI was 7.2 per hour. EKG monitoring revealed an average heart rate of 75 beats per minute. Occasional PVCs observed. No sustained arrhythmias observed. No clinically significant PLMS seen. Nocturnal oximetry study revealed an average oxygen saturation of 93% with the lowest of 80%, 20 minutes were spent in oxygen saturation less than 89%. Due to low AHI, the patient did not meet the split night criteria for CPAP initiation. IMPRESSION: 1. Mild sleep apnea-hypopnea syndrome with worsening during REM sleep, total AHI of 7.2 per hour with a REM AHI of 49.7 per hour. 2. Reduced sleep efficiency of 61%, resulting from sleep maintenance insomnia. 3. No clinically significant periodic limb movements of sleep. 4. Mild nocturnal hypoxia secondary to obstructive sleep apnea. [facility] [address] [place] [address] POLYSOMNOGRAPHY STUDY Name: HUMBERTO SMITH [facility] [id number] Admission: 09/25/18 ������������������ Attend Phys: Harry Coleman MD Discharge: ������������������ Date of : 60 Report #: [id number] RECOMMENDATIONS: 1. The patient did not meet the split night criteria for CPAP initiation. 2. The patient is clinically symptomatic with an [place] score of 10. Consider treating the patient's sleep apnea with either an oral appliance as recommended by the dentist versus a trial of CPAP. 3. Weight loss is strongly advised. 4. Avoid PRODUCTION METAL SPRAYER depressants. 5. Cautioned regarding driving until symptoms of sleep apnea resolve with the above recommendations. 6. If the patient has chronic insomnia, then it should be further evaluated and treated according to the etiology. ��������������������������������������������� <ELECTRONICALLY SIGNED> ���������������������������������������� By: Harry Coleman MD ��������������������������������������������� 09/26/18 2340 1647 1815 Harry Coleman MD /nt
== END ==
LOC: SLEEPLAB 09-18 11:52
DX: G47.30 Sleep apnea, unspecified (principal)

== ENCOUNTER 2018-12-11 10:23 | Emergency (ER) | payer OTHER ==
[~2018-12-11] VITALS: Ht 162.6 cm; Wt 117.0 kg
[2018-12-11 11:10] LABS: BASOPHILS 0.6 % (0.0-2.0); EOSINOPHILS 2.4 % (0.0-3.0); HEMATOCRIT 29.5 % (37.0-47.0); HEMOGLOBIN 9.4 gm/dL (12.0-15.0); LYMPHOCYTES 19.2 % (24.0-44.0); MCH 28.4 pg (26.0-34.0); MCHC 31.8 g/dL (28.0-37.0); MCV 89.4 fL (80.0-100.0); MONOCYTES 11.1 % (1.0-8.0); PLATELET COUNT 288 thou/uL (150-400); POLYS 66.7 % (36.0-66.0); RDW 16.3 % (10.5-14.5); WBC 10.5 thou/uL (4.0-11.0)
[2018-12-11 11:11] LABS: URINE BILIRUBIN NEGATIVE (Negative); URINE BLOOD NEGATIVE (Negative); URINE CLARITY CLEAR; URINE COLOR YELLOW; URINE GLUCOSE-RANDOM* NEGATIVE (Negative); URINE KETONES NEGATIVE (Negative); URINE LEUKOCYTES-REFLEX NEGATIVE (Negative); URINE NITRITE-REFLEX NEGATIVE (Negative); URINE PROTEIN (DIPSTICK) NEGATIVE (Negative); URINE UROBILINOGEN 0.2 E.U./dl (0.2-1.0)
[2018-12-11 11:12] LABS: CREATININE 3.1 mg/dL (0.6-1.0); POTASSIUM 4.7 mmol/L (3.5-5.1)
[2018-12-11 11:18] LABS: ALBUMIN 3.8 g/dL (3.4-5.0); DIRECT BILIRUBIN 0.1 mg/dL (<0.1-0.3); TOTAL BILIRUBIN 0.3 mg/dL (<0.1-1.0); TOTAL PROTEIN 7.3 g/dL (6.4-8.2)
--- NOTE | 2018-12-11 12:32 | EKG ---
[place] [address] [address] [facility] [place] [address] ELECTROCARDIOGRAM REPORT Name: HUMBERTO SMITH [id number] Admission: 12/11/18 Attend Phys: Discharge: Date of : 60 Report #: [id number] THIS REPORT FOR: //name// [facility] ED Test Date: 2018-12-11 Test Time: 11:38:14 Pat Name: HUMBERTO SMITH Department: Room: Gender: F Crayon Sawyer: Meryl : 1960 Requested By: Ayanna Batista Order Number: [id number] MD: Roshan Chicas Measurements Intervals [place] Rate: 63 P: 59 WA: 151 QRS: 0 QRSD: 104 T: 40 QT: 459 QTc: 470 Interpretive Statements Sinus rhythm Atrial premature complex Abnormal R-wave progression, late transition Compared to ECG 06/10/2018 20:42:24 No significant change was found Electronically Signed On 12-11-2018 12:31:46 CDT by Roshan Chicas [email or web address] <ELECTRONICALLY SIGNED> By: Roshan Chicas MD, [facility] 12/11/18 1231 1138 1138 Roshan Chicas MD, FAC /EPI
[2018-12-11 14:16] VITALS: BP 123/61
== END 2018-12-11 14:54 | disposition home or self-care (01) ==
LOC: ER 10:23
PROVIDERS: Emergency Medicine
DX: R10.13 Epigastric pain (principal); I13.0 Hypertensive heart and chronic kidney disease with heart failure and stage 1 through stage 4 chronic kidney disease, or unspecified chronic kidney disease; I50.30 Unspecified diastolic (congestive) heart failure; N18.3 Chronic kidney disease, stage 3 (moderate); I48.91 Unspecified atrial fibrillation; E78.5 Hyperlipidemia, unspecified; J44.9 Chronic obstructive pulmonary disease, unspecified; G47.30 Sleep apnea, unspecified; G89.29 Other chronic pain; M54.9 Dorsalgia, unspecified; M10.9 Gout, unspecified; E66.9 Obesity, unspecified; F17.210 Nicotine dependence, cigarettes, uncomplicated; Z68.41 Body mass index [BMI] 40.0-44.9, adult; Z90.49 Acquired absence of other specified parts of digestive tract; Z95.0 Presence of cardiac pacemaker; Z86.711 Personal history of pulmonary embolism; Z86.14 Personal history of Methicillin resistant Staphylococcus aureus infection; Z98.890 Other specified postprocedural states; Z88.8 Allergy status to other drugs, medicaments and biological substances

== ENCOUNTER → 2021-03-04 | Outpatient (CLI) | payer OTHER | LOC: SJCVCIMAG 07:59 | PROVIDERS: ATTEND Internal Medicine | DX: I82.B22 Chronic embolism and thrombosis of left subclavian vein (principal); J44.9 Chronic obstructive pulmonary disease, unspecified; M10.9 Gout, unspecified; E78.00 Pure hypercholesterolemia, unspecified; I10 Essential (primary) hypertension; G47.33 Obstructive sleep apnea (adult) (pediatric); F17.210 Nicotine dependence, cigarettes, uncomplicated; Z88.8 Allergy status to other drugs, medicaments and biological substances; Z79.82 Long term (current) use of aspirin; Z79.899 Other long term (current) drug therapy ==